=== PATIENT | male | born 1950 | race Caucasian/White ===

== ENCOUNTER 2016-09-30 12:12 | Emergency (ER) | payer OTHER ==
[~2016-09-30] VITALS: Ht 185.4 cm; Wt 68.0 kg
[~2016-09-30 12:12] MED LIST: ASPI81 PO; CLOP75 PO; EZET10 PO
[2016-09-30 12:14] VITALS: BP 180/82; PULSE 60; RESP 20; TEMP 97.2; O2SAT 98
--- NOTE | 2016-09-30 12:18 | PD ---
Physical Exam Date Seen by Provider: Sep 30, 2016 Time Seen by Provider: 12:15 Data Data Last Documented VS Vital Signs Date Time Temp Pulse Resp B/P Pulse Ox O2 Delivery O2 Flow Rate FiO2 09/30/16 12:14 97.2 60 20 180/82 98 Room Air MDM Supervised Visit with COLT: No Narrative Course 66 YO M with complaint of pounding headache, SOB upon waking ~730 AM. Accompanied by numbness and tingling in BLE and BUE, now resolved. States that he is concerned for stroke. Drove himself to the hospital. History of COPD. Vitals reviewed. Seen in triage, awaiting bed placement. Georgia Bloom Sep 30, 2016 12:18
[2016-09-30 12:25] VITALS: BP 158/76; PULSE 57; RESP 14; TEMP 97.9; O2SAT 98
--- NOTE | 2016-09-30 12:31 | PD ---
HPI Chief Complaint: General Weakness Time Seen by Provider: 12:22 Travel History International Travel<30 days: No Contact w/Intl Traveler<30days: No Traveled to known affect area: No History of Present Illness HPI WOKE [place], WAS BREATHING FAST AND ALSO FELT A HEADACHE WELL, SHORTLY AFTERWARDS STARTED TO FEEL TINGLING TO HANDS/FEET AND AROUND LIPS...NO LATERALIZING WEAKNESS...CLEAR SPEECH PFSH Past Medical History Depression: Yes (POSSIBLE) Cardiovascular Problems: Yes (mi) Hypertension: Yes Musculoskeletal: Yes (CHRONIC LOW BACK PAIN) Neurologic: Yes (BRAIN ANEURYSM) Pneumonia: Yes Past Surgical History Neurologic Surgery: Yes (METALLIC COILS IN BRAIN; DX'D BRAIN ANEURYSM 07/16) Social History Alcohol Use: No Tobacco Use: Yes (3/4 PACK PER DAY) Substance Use: No Allergies-Medications (Allergen,Severity, Reaction): Uncoded Allergies: STATINS (Adverse Reaction, Intermediate, 06/08/13) Reported Meds & Prescriptions Reported Meds & Active Scripts Active Reported [tumiric supplement ] Magnesium (Magnesium Oxide) 400 Mg Tablet 1 Tab PO DAILY [vital reds ] 1 Tab PO DAILY Review of Systems Except as stated in HPI: all other systems reviewed are Neg Neurologic: Positive: Headache, Paresthesia Physical Exam Narrative GENERAL: SKIN: Warm and dry. HEAD: Atraumatic. Normocephalic. EYES: Pupils equal and round. No scleral icterus. No injection or drainage. ENT: No nasal bleeding or discharge. Mucous membranes pink and moist. NECK: Trachea midline. No JVD. CARDIOVASCULAR: Regular rate and rhythm. RESPIRATORY: No accessory muscle use. Clear to auscultation. Breath sounds equal bilaterally. GASTROINTESTINAL: Abdomen soft, non-tender, nondistended. Hepatic and splenic margins not palpable. MUSCULOSKELETAL: Extremities without clubbing, cyanosis, or edema. No obvious deformities. NEUROLOGICAL: Awake and alert. No obvious cranial nerve deficits. Motor grossly within normal limits. Five out of 5 muscle strength in the arms and legs. Normal speech. PSYCHIATRIC: Appropriate mood and affect; insight and judgment normal. Data Data Last Documented VS Vital Signs Date Time Temp Pulse Resp B/P Pulse Ox O2 Delivery O2 Flow Rate FiO2 09/30/16 13:55 51 17 141/72 98 09/30/16 12:30 Room Air 09/30/16 12:25 97.9 Orders Blood Glucose (09/30/16 12:27) Ct Brain W/O Iv Contrast(Rout) (09/30/16 ) Orthostatic Vital Signs (09/30/16 12:29) MDM Medical Decision Making Medical Screen Exam Complete: Yes Emergency Medical Condition: Yes Medical Record Reviewed: Yes Differential Diagnosis HYPERVENT SYNDROME V HYPOGLYCEMIA VS ORTHOSTATICS V ICH Narrative Course CT NEG FOR NEW FINDINGS, PT NEG ORTHOSTASIS, NL GLUCOSE. ON REEVALUATION NO LATERALIZING SYMPTOMS NOTED Diagnosis Primary Impression: PARESTHESIA RESOLVED Disposition: 01 DISCHARGE HOME Condition: Stable Nakul Akhtar MD Sep 30, 2016 12:31
[2016-09-30 12:38] VITALS: BP_SYST 135; BP_SYST 138; BP_SYST 171; BP_DIAS 71; BP_DIAS 72; BP_DIAS 82; RESP 18; RESP 21; RESP 26
[2016-09-30] MEDS ORDERED: vital reds PO (12:45)
[2016-09-30] MEDS ORDERED: TURMERIC (12:46)
[2016-09-30] MEDS ORDERED: MAGN400T24 PO (12:46)
--- NOTE | 2016-09-30 13:51 | RADRPT ---
EXAM DATE/TIME: 09/30/2016 13:25 [facility] COMPARISON: No previous studies available for comparison. INDICATIONS : Numbness in all extremities this morning. RADIATION DOSE: 33.94 CTDIvol (mGy) MEDICAL HISTORY : Aneurysm, intracranial. Cardiovascular disease Hypertension.COPD SURGICAL HISTORY : BRAIN ANEURYSM COILING ENCOUNTER: Initial ACUITY: 1 day PAIN SCALE: 0/10 LOCATION: cranial TECHNIQUE: Multiple contiguous axial images were obtained of the head. Using automated exposure control and adj ustment of the mA and/or kV according to patient size, radiation dose was kept as low as reasonably a chievable to obtain optimal diagnostic quality images. FINDINGS: CEREBRUM: Significant streak artifact limiting evaluation from likely basilar aneurysm coiling. Cerebral pappas-w arjun matter differentiation appears maintained. The ventricles are normal for age. No evidence of mi dline shift, mass lesion, hemorrhage or acute infarction. No extra-axial fluid collections are seen. POSTERIOR FOSSA: Encephalomalacic defect involving the left cerebellar hemisphere. The 4th ventricle is midline. The cerebellopontine angle is unremarkable. EXTRACRANIAL: The visualized portion of the orbits is intact. SKULL: The calvaria is intact. No evidence of skull fracture. CONCLUSION: 1. Apparent prior basilar aneurysm coiling. Streak artifact limits evaluation of the mid to lower con vexities. 2. 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 3. No acute intracranial abnormality. Orville Riley MD on September 30, 2016 at 13:45 Board Certified Radiologist. This report was verified electronically.
[2016-09-30 13:55] VITALS: BP 141/72; PULSE 51; RESP 17; O2SAT 98
== END 2016-09-30 15:09 | disposition home or self-care (01) ==
LOC: NEPC 12:12
DX: R20.9 Unspecified disturbances of skin sensation (principal); R51 Headache; I10 Essential (primary) hypertension; F17.200 Nicotine dependence, unspecified, uncomplicated
CPT/HCPCS: 70450; 99284